=== PATIENT | female | born 1995 | race Caucasian/White ===

== ENCOUNTER 2020-12-26 19:46 | Emergency (ER) | payer BC ==
--- OUTSIDE RECORDS SUMMARY | 2020-12-26 19:49 | XMS REPORT | Continuity of Care Document ---
:1995 Author Organization [facility] t Address [address] [place] [address] Dr. Anderson [address] [place] [address] Care Team Providers Name Role Phone Unavailable Unavailable Unavailable Problems This patient has no known problems. Allergies, Adverse Reactions, Alerts This patient has no known allergies or adverse reactions. Medications This patient has no known medications. Procedures This patient has no known procedures. Encounters Start End Encounter Admission Attending Care Care Encounter Source Date/Time Date/Time Type Type Clinicians Facility Department ID 2020-12-05 2020-12-05 Outpatient [facility] [id number] [facility] 00:00:00 00:00:00 Bryson Campbell ent Clinics Results This patient has no known results.
[2020-12-26 20:34] LABS: Absolute Lymphocytes (CBC) 2.6 K/uL (0.7-4.9); Basophils % 0.4 % (0-1.3); Hematocrit 36.3 % (36.0-45.0); Lymphocytes % 29.1 % (15.3-44.8); MPV 7.8 fL (7.6-11.3); RBC Red Blood Cell Count 4.08 M/uL (3.86-4.86)
[2020-12-26] MEDS ORDERED: NA CHLORIDE 0.9% 1,000 ML ONE (20:35)
[2020-12-26 20:53] LABS: Urine Blood 3+ (NEG); Urine Glucose NEGATIVE (NEG); Urine Protein NEGATIVE (NEG); Urine Specific Gravity 1.015 (1.005-1.030)
[2020-12-26 20:54] LABS: Urine Specific Gravity 1.015 (1.005-1.030)
--- NOTE | 2020-12-26 21:34 | RAD REPORT ---
EXAM DESCRIPTION: US - Transvaginal OB - 12/26/2020 9:08 pm CLINICAL HISTORY: ABD CRAMPING, COMPARISON: No comparisons FINDINGS: The uterus is normal sized. Endometrium is mildly thickened but no IUP is seen. The maternal adnexa and ovaries are within normal limits. Normal Doppler blood flow was demonstrated to both ovaries. No pelvic ascites. IMPRESSION: Mildly thickened endometrium without IUP findings. In the setting of a positive HCG leve l, this would indicate of unknown location. Recommend serial HCG levels and follow-up pelvi c sonogram 7-10 days.
--- NOTE | 2020-12-26 22:09 | ER ---
Nurse's Notes [facility] Name: Claudia Moreno Age: 25 yrs Sex: Female : 1995 Arrival Date: 12/26/2020 Time: 19:53 Bed 8 Private MD: Diagnosis: Threatened ; related conditions, unspecified, first trimester Presentation: 12/26 19:56 Chief complaint: Patient states: Vaginal bleeding began today at 1400 with cramping. 6 ll1 positive test Wednesday. G1, P0. Coronavirus screen: Client denies travel out of the [place] in the last 14 days. At this time, the client does not indicate any symptoms associated with coronavirus-19. Ebola Screen: Patient denies travel to an Ebola-affected area in the 21 days before illness onset. Initial Sepsis Screen: Does the patient meet any 2 criteria? No. Patient's initial sepsis screen is negative. Does the patient have a suspected source of infection? Yes: Other: vag bleed. Risk Assessment: Do you want to hurt yourself or someone else? Patient reports no desire to harm self or others. Onset of symptoms was December 26, 2020. 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 - Social history:: Smoking status: Patient reports the use of cigarette tobacco products, denies chronic smoking, but will smoke occasionally. - Family history:: not pertinent. Screenin:26 Abuse screen: Denies threats or abuse. Denies injuries from another. Nutritional mg2 screening: No deficits noted. Tuberculosis screening: No symptoms or risk factors identified. Fall Risk IV access (20 points). Assessment: 20:24 General: Appears in no apparent distress. comfortable, Behavior is calm, cooperative. mg2 Pain: Complains of pain in abdomen Pain does not radiate. Pain currently is 1 out of 10 on a pain scale. Quality of pain is described as crampy. Neuro: Level of Consciousness is awake, alert, obeys commands, Oriented to person, place, time, situation. Cardiovascular: Capillary refill < 3 seconds Patient's skin is warm and dry. Respiratory: Airway is patent Respiratory effort is even, unlabored, Respiratory pattern is regular, symmetrical. GI: Reports lower abdominal pain, cramping. : Urine is blood tinged, Reports vaginal bleeding that is light flow. EENT: No signs and/or symptoms were reported regarding the EENT system. Derm: Skin is intact, is healthy with good turgor, Skin is pink, warm \T\ dry. normal. Musculoskeletal: Circulation, motion, and sensation intact. Capillary refill < 3 seconds. 21:26 Reassessment: Patient appears in no apparent distress at this time. Patient and/or mg2 family updated on plan of care and expected duration. Pain level reassessed. Patient is alert, oriented x 3, equal unlabored respirations, skin warm/dry/pink. 22:20 Reassessment: Patient appears in no apparent distress at this time. Patient and/or wh family updated on plan of care and expected duration. Pain level reassessed. Patient is alert, oriented x 3, equal unlabored respirations, skin warm/dry/pink. Vital Signs: 19:56 BP 131 / 71; Pulse 89; Resp 16; Temp 98.2; Pulse Ox 100% ; Weight 58.51 kg; Height 5 ll1 ft. 6 in. (167.64 cm); Pain 3/10; 21:26 BP 112 / 62; Pulse 100; Resp 18; Pulse Ox 100% on R/A; mg2 22:20 BP 118 / 71; Pulse 78; Resp 18; Pulse Ox 100% on R/A; wh 19:56 Body Mass Index 20.82 (58.51 kg, 167.64 cm) ll1 ED Course: 19:53 Patient arrived in ED. cf2 19:58 Triage completed. ll1 19:59 Arm band placed on. ll1 20:00 Juan C Hemphill, [place] is Primary Nurse. mg2 20:04 Ajay Reid MD is Attending Physician. gilberto 20:26 Patient has correct armband on for positive identification. mg2 20:26 No provider procedures requiring assistance completed. Inserted saline lock: 20 gauge mg2 in left antecubital area, using aseptic technique. Blood collected. 21:08 Transvaginal Ob In Process Unspecified. EDOR 22:07 Niels Brian MD is Referral Physician. [facility] 22:21 IV discontinued, intact, bleeding controlled, No redness/swelling at site. Administered Medications: 20:24 Drug: NS 0.9% 1000 ml Route: IV; Rate: 1 bolus; Site: left antecubital; mg2 22:11 Follow up: Response: No adverse reaction; IV Status: Completed infusion Point of Care Testing: Urine : 21:00 hCG Reading: Positive; Control Reading: Positive; Outcome: 22:08 Discharge ordered by . [facility] 22:21 Discharged to home ambulatory. 22:21 Condition: stable 22:21 Discharge instructions given to patient, Instructed on discharge instructions, follow up and referral plans. medication usage, POC Demonstrated understanding of instructions, follow-up care, medications, POC Prescriptions given X 1. 22:22 Patient left the ED. Signatures: Dispatcher [employer] EDOR Ajay Reid MD MD cha Habalo, Winsy, RN RN Juan C Hemphill, [place] RN [facility] Karena Rowell 2 Kelly Delcid RN RN ll1
--- NOTE | 2020-12-26 22:09 | EDPHYS ---
Physician Documentation [facility] Name: Claudia Moreno Age: 25 yrs Sex: Female : 1995 Arrival Date: 12/26/2020 Time: 19:53 Bed 8 Private MD: ED Physician Ajay Reid HPI: 12/26 22:05 This 25 yrs old Female presents to ER via Ambulatory with complaints of gilberto Vaginal Bleeding, + Preg <12wks. 22:05 The patient presents to the emergency department with vaginal bleeding. The estimated gilberto gestational age is 3 weeks. course: care: none. Previous pregnancies: the patient has never been . Associated signs and symptoms: The patient has no apparent associated signs or symptoms. The patient has not experienced similar symptoms in the past. 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 - Social history:: Smoking status: Patient reports the use of cigarette tobacco products, denies chronic smoking, but will smoke occasionally. - Family history:: not pertinent. ROS: 22:05 Constitutional: Negative for fever, chills, and weight loss, Eyes: Negative for injury, gilberto pain, redness, and discharge, ENT: Negative for injury, pain, and discharge, Neck: Negative for injury, pain, and swelling, Cardiovascular: Negative for chest pain, palpitations, and edema, Respiratory: Negative for shortness of breath, cough, wheezing, and pleuritic chest pain, Abdomen/GI: Negative for abdominal pain, nausea, vomiting, diarrhea, and constipation, Back: Negative for injury and pain, MS/Extremity: Negative for injury and deformity, Skin: Negative for injury, rash, and discoloration, Neuro: Negative for headache, weakness, numbness, tingling, and seizure, Psych: Negative for depression, anxiety, suicide ideation, homicidal ideation, and hallucinations, Allergy/Immunology: Negative for hives, rash, and allergies, Endocrine: Negative for neck swelling, polydipsia, polyuria, polyphagia, and marked weight changes, Hematologic/Lymphatic: Negative for swollen nodes, abnormal bleeding, and unusual bruising. 22:05 : Positive for vaginal bleeding. Exam: 22:05 Constitutional: This is a well developed, well nourished patient who is awake, alert, gilberto and in no acute distress. Head/Face: Normocephalic, atraumatic. Eyes: Pupils equal round and reactive to light, extra-ocular motions intact. Lids and lashes normal. Conjunctiva and sclera are non-icteric and not injected. Cornea within normal limits. Periorbital areas with no swelling, redness, or edema. ENT: Nares patent. No nasal discharge, no septal abnormalities noted. Tympanic membranes are normal and external auditory canals are clear. Oropharynx with no redness, swelling, or masses, exudates, or evidence of obstruction, uvula midline. Mucous membranes moist. Neck: Trachea midline, no thyromegaly or masses palpated, and no cervical lymphadenopathy. Supple, full range of motion without nuchal rigidity, or vertebral point tenderness. No Meningismus. Chest/axilla: Normal chest wall appearance and motion. Nontender with no deformity. No lesions are appreciated. Cardiovascular: Regular rate and rhythm with a normal S1 and S2. No gallops, murmurs, or rubs. Normal PMI, no JVD. No pulse deficits. Respiratory: Lungs have equal breath sounds bilaterally, clear to auscultation and percussion. No rales, rhonchi or wheezes noted. No increased work of breathing, no retractions or nasal flaring. Abdomen/GI: Soft, non-tender, with normal bowel sounds. No distension or tympany. No guarding or rebound. No evidence of tenderness throughout. Back: No spinal tenderness. No costovertebral tenderness. Full range of motion. Skin: Warm, dry with normal turgor. Normal color with no rashes, no lesions, and no evidence of cellulitis. MS/ Extremity: Pulses equal, no cyanosis. Neurovascular intact. Full, normal range of motion. Neuro: Awake and alert, GCS 15, oriented to person, place, time, and situation. Cranial nerves II-XII grossly intact. Motor strength 5/5 in all extremities. Sensory grossly intact. Cerebellar exam normal. Normal gait. Psych: Awake, alert, with orientation to person, place and time. Behavior, mood, and affect are within normal limits. Vital Signs: 19:56 BP 131 / 71; Pulse 89; Resp 16; Temp 98.2; Pulse Ox 100% ; Weight 58.51 kg; Height 5 ll1 ft. 6 in. (167.64 cm); Pain 3/10; 21:26 BP 112 / 62; Pulse 100; Resp 18; Pulse Ox 100% on R/A; mg2 22:20 BP 118 / 71; Pulse 78; Resp 18; Pulse Ox 100% on R/A; wh 19:56 Body Mass Index 20.82 (58.51 kg, 167.64 cm) ll1 MDM: 20:04 Patient medically screened. gilberto 12/26 20:07 Order name: Quantitative Hcg; Complete Time: 21:49 gilberto 12/26 20:07 Order name: Abo/rh Typing; Complete Time: 22:04 gilberto 12/26 20:07 Order name: Basic Metabolic Panel; Complete Time: 21:49 gilberto 12/26 20:07 Order name: CBC with Diff; Complete Time: 21:49 gilberto 12/26 20:14 Order name: Urine --Ancillary (enter results) tt3 12/26 20:14 Order name: Urine Dipstick--Ancillary (enter results) tt3 12/26 20:01 Order name: Urine Dipstick-Ancillary (obtain specimen); Complete Time: 20:13 mg2 12/26 20:01 Order name: Urine Test (obtain specimen); Complete Time: 20:13 mg2 12/26 20:07 Order name: IV Saline Lock; Complete Time: 20:24 gilberto 12/26 20:07 Order name: US Transvaginal Ob; Complete Time: 21:49 gilberto 12/26 20:14 Order name: Urine --Ancillary; Complete Time: 21:49 EDMS 12/26 20:14 Order name: Urine Dipstick-Ancillary; Complete Time: 21:49 EDMS 12/26 20:21 Order name: Urine --Ancillary (enter results); Complete Time: 21:49 tt3 12/26 20:07 Order name: Labs collected and sent; Complete Time: 20:24 gilberto 12/26 20:07 Order name: NPO; Complete Time: 20:24 gilberto Administered Medications: 20:24 Drug: NS 0.9% 1000 ml Route: IV; Rate: 1 bolus; Site: left antecubital; mg2 22:11 Follow up: Response: No adverse reaction; IV Status: Completed infusion Point of Care Testing: Urine : 21:00 hCG Reading: Positive; Control Reading: Positive; Disposition: 12/26/20 22:08 Discharged to Home. Impression: Threatened , related conditions, unspecified, first trimester. - Condition is Stable. - Discharge Instructions: Threatened Miscarriage, Vaginal Bleeding During , First Trimester, First Trimester of , [id number]-md-Pjdk, First Trimester of , Threatened Miscarriage, [id number]-Pwfl, Pelvic Rest. - Prescriptions for Vitamin 27- 0.8 mg Oral Tablet - take 1 tablet by ORAL route once daily; 30 tablet. - Medication Reconciliation Form, Thank You Letter, Antibiotic Education, Prescription Opioid Use form. - Follow up: Niels Brian MD; When: 2 - 3 days; Reason: Recheck today's complaints, Continuance of care, Re-evaluation by your physician. - Problem is new. - Symptoms have improved. Signatures: Dispatcher [employer] EDMS Ajay Reid MD MD cha Habalo, Winsy, RN RN Juan C Hemphill, [place] RN [facility] Kelly Delcid RN RN ll1 Corrections: (The following items were deleted from the chart) 22:22 22:08 12/26/2020 22:08 Discharged to Home. Impression: Threatened ; wh related conditions, unspecified, first trimester. Condition is Stable. Forms are Medication Reconciliation Form, Thank You Letter, Antibiotic Education, Prescription Opioid Use. Follow up: Niels Brian; When: 2 - 3 days; Reason: Recheck today's complaints, Continuance of care, Re-evaluation by your physician. Problem is new. Symptoms have improved. gilberto
[2020-12-27 00:27] VITALS: BP 118/71; TEMP 98.2; O2SAT 100
== END 2020-12-26 22:22 | disposition home or self-care (01) ==
LOC: ER 19:46
DX: O20.0 Threatened abortion (principal); O99.331 Smoking (tobacco) complicating pregnancy, first trimester; F17.210 Nicotine dependence, cigarettes, uncomplicated
CPT/HCPCS: 96361; 85025; 80048; 36415; 86900; 81025 ×2; 86901; 84702; 81003; 76817; 96360; 99284; J7030

== ENCOUNTER 2021-09-27 18:28 | Emergency (ER) | payer OTHER, SELFPAY ==
--- OUTSIDE RECORDS SUMMARY | 2021-09-27 18:32 | XMS REPORT | Continuity of Care Document ---
:1995 Author Organization [facility] t Address [address] Anderson [address] [place] [address] Care Team Providers Name Role Phone Leodan VALENCIA Attending Clinician Unavailable Doctor Unassigned, Name Attending Clinician Unavailable Leodan Valencia MD Attending Clinician Payers Payer Name Policy Type Policy Number Effective Date Expiration Date S [facility] - [id number] 2020 00:00:00 OUT OF STATE Problems Condition Condition Condition Status Onset Resolution Last Treating Co mments Source Name Details Category Date Date Treatment Clinician Date Anxiety Anxiety Disease Active [facility] Allergies, Adverse Reactions, Alerts Allergy Allergy Status Severity Reaction(s) Onset Inactive Treating Comm ents Source Name Type Date Date Clinician Sulfa Propensi Active Nausea 0 Univers (Sulfona ty to and/or 3-30 ity of mide adverse Vomiting 00:00: [place] Antibiot reaction 00 Medica l ics) s Branch SULFA Drug Active Dizziness 2020-0 Univers (SULFONA Class 3-30 ity of MIDE 00:00: [place] ANTIBIOT 00 Medical ICS) Branch NO KNOWN Drug Active Univers ALLERGIE Class ity of S [facility] Social History Social Habit Start Date Stop Date Quantity Comments Source History of tobacco Cigarette Smoker University of use [facility] Exposure to Not sure [facility] SARS-CoV-2 (event) [facility] Cigarettes smoked 2021-01-21 2021-01-21 Univers ity of current (pack per 00:00:00 00:00:00 [place] ) - Reported Branch Cigarette 2021-01-21 2021-01-21 University of pack-years 00:00:00 00:00:00 [facility] Tobacco use and 2021-01-21 2021-01-21 Never used Universit y of exposure 00:00:00 00:00:00 [facility] Alcohol intake 2021-01-21 2021-01-21 Current drinker Unive rsity of 00:00:00 00:00:00 of alcohol [facility] (finding) [place] Alcohol Comment 2021-01-21 2021-01-21 rarely Universit y of 00:00:00 00:00:00 [facility] Sex Ass[birth year] At [birth year] Universit y of 00:00:00 00:00:00 [facility] Smoking Status Start Date Stop Date Source Current every day smoker 2021-01-21 00:00:00 Uni versity [facility] Medications Ordered Filled Start Stop Current Ordering Indication Dosage Frequency Signature Comments Components Source Medication Medication Date Date Medication? Clinician (SIG) Name Name hydrOXYzine Yes [id number] 25mg Take 1 Univers 25 mg 3-30 capsule by ity of capsule 00:00: mouth [address] [place] [address] [facility]) Medical times [place] daily as needed for Anxiety. hydrOXYzine Yes [id number] 25mg Take 1 Univers 25 mg 3-30 capsule by ity of capsule 00:00: [address] ([facility]) Medical times [place] daily as needed for Anxiety. hydrOXYzine Yes [id number] 25mg Take 1 Univers 25 mg 3-30 capsule by ity of capsule 00:00: mouth [address] [place] [address] [address] [facility]) Medical times [place] daily as needed for Anxiety. hydrOXYzine Yes [id number] 25mg Take 1 Univers 25 mg 3-30 capsule by ity of capsule 00:00: mouth [address] [place] [address] [facility]) Medical times [place] daily as needed for Anxiety. hydrOXYzine Yes [id number] 25mg Take 1 Univers 25 mg 3-30 capsule by ity of capsule 00:00: mouth [address] [place] [address] [facility]) Medical times [place] daily as needed for Anxiety. hydrOXYzine Yes [id number] 25mg Take 1 Univers 25 mg 3-30 capsule by ity of capsule 00:00: mouth [address] [place] [address] (four) Medical times [place] daily as needed for Anxiety. SUMAtriptan Yes 1{tbl} Take 1-2 Univers 50 mg 2-11 tablets by ity of tablet 00:00: mouth as [place] 00 needed for Medical Migraine. Branch SUMAtriptan Yes 1{tbl} Take 1-2 Univers 50 mg 2-11 tablets by ity of tablet 00:00: mouth as [place] 00 needed for Medical Migraine. Branch SUMAtriptan Yes 1{tbl} Take 1-2 Univers 50 mg 2-11 tablets by ity of tablet 00:00: mouth as [place] 00 needed for Medical Migraine. Branch SUMAtriptan Yes 1{tbl} Take 1-2 Univers 50 mg 2-11 tablets by ity of tablet 00:00: mouth as [place] 00 needed for Medical Migraine. Branch SUMAtriptan Yes 1{tbl} Take 1-2 Univers 50 mg 2-11 tablets by ity of tablet 00:00: mouth as [place] 00 needed for Medical Migraine. Branch SUMAtriptan Yes 1{tbl} Take 1-2 Univers 50 mg 2-11 tablets by ity of tablet 00:00: mouth as [place] 00 needed for Medical Migraine. [place] Vital Signs Vital Name Observation Time Observation Value Comments Source Systolic blood 2021-01-21 18:59:00 127 mm[Hg] Univer sity of pressure [facility] Diastolic blood 2021-01-21 18:59:00 81 mm[Hg] [facility] 2021-01-21 18:59:00 77 /min [facility] Body temperature 2021-01-21 18:59:00 36.72 Ivette [facility] Respiratory rate 2021-01-21 18:59:00 18 /min [facility] Body height 2021-01-21 18:59:00 166.4 cm [facility] Body weight 2021-01-21 18:59:00 58.786 kg [facility] BMI 2021-01-21 18:59:00 21.24 kg/m2 [facility] Procedures Procedure Date / Time Performed Performing Clinician Sourc e EXTERNAL PROVIDER 2021-02-07 05:01:00 Doctor Unassigned, No Univ ersity [facility] SCANNED LAB RESULTS 2021-01-21 05:01:00 [facility] 2021-01-21 00:00:00 Gabriel Valencia ty [facility] Encounters Start End Encounter Admission Attending Care Care Encounter Source Date/Time Date/Time Type Type Clinicians Facility Department ID 2022-01-21 2022-01-21 Outpatient R ERIK, [facility] [id number] Univers 09:00:00 09:00:00 GABRIEL [id number] ity [facility] 2022-01-21 2022-01-21 Outpatient R ERIK, [facility] [id number] Univers 09:00:00 09:00:00 [facility] 2021-02-07 2021-02-07 Orders Doctor CLINT [id number] Univers 00:00:00 00:00:00 Only Unassigned, PETE [id number] ity [facility] [id number] Ian as [phone] [address] 2021-02-03 2021-02-03 Outpatient [facility] [id number] 2021-02-03 2021-02-03 Outpatient [facility] [id number] [facility] 2021-01-28 2021-01-28 Case Ad, [facility] [id number] Univers 00:00:00 00:00:00 Management Gabriel Gonzales [id number] ity [facility] [id number] [phone] [address] 2021-01-21 2021-01-21 Office Ad, [facility] [id number] Univers 13:04:09 15:16:56 Visit Gabriel Gonzales [id number] ity [id number] [phone] Vt dical [address] 2021-01-21 2021-01-21 Outpatient Daniel VALENCIA, [facility] [id number] Univers 13:30:00 13:30:00 GABRIEL ity [facility] 2021-01-21 2021-01-21 Orders Doctor CLINT [id number] Univers 00:00:00 00:00:00 Only Unassigned, PETE [id number] ity of [place] [facility] [id number] Ian as [phone] [address] 2020-12-26 2020-12-26 Outpatient [facility] [id number] [facility]00 [facility] 2020-12-05 2020-12-05 Outpatient [facility] [id number] [facility]00 [facility] Results Test Description Test Time Test Comments Results Result Comments Source POCT TEST 2021-01-21 19:40:00 Test Item Value Reference Range Interpretation Comme nts POCT PREG (test code = 1605) Negative On board controls acceptable with C Line (test code = 3574) Yes POCT PREG LOT # (test code = 3575) POCT PREG TEST DATE (test code = 3576) Lab Interpretation (test code = 73337-9) [id number] 19:40:00 Test Item Value Reference Range Interpretation Comments POCT PREG (test code = 1605) Negative On board controls acceptable with C Yes Line (test code = 3574) POCT PREG LOT # (test code = 3575) POCT PREG TEST DATE (test code = 3576) Lab Interpretation (test code = Normal 81471-4) [id number] 19:40:00 Test Item Value Reference Range Interpretation Comments POCT PREG (test code = 1605) Negative On board controls acceptable with C Yes Line (test code = 3574) POCT PREG LOT # (test code = 3575) POCT PREG TEST DATE (test code = 3576) Lab Interpretation (test code = Normal 17996-4) [facility]
[2021-09-27 20:04] LABS: Urine Bilirubin NEGATIVE (Negative); Urine Blood 3+ (Negative); Urine Glucose NEGATIVE (Negative); Urine Protein 2+ (Negative)
[2021-09-27 20:07] LABS: Urine Appearance TURBID (Clear); Urine Color RED (Yellow)
[2021-09-27 20:07] LABS: Absolute Lymphocytes (CBC) 2.1 K/uL (0.7-4.9); Basophils % 0.5 % (0-1.3); Hematocrit 38.4 % (36.0-45.0); Lymphocytes % 31.5 % (15.3-44.8); RBC Red Blood Cell Count 4.35 M/uL (3.86-4.86)
[2021-09-27 20:09] LABS: Urine Bacteria 20-50 /HPF (<20); Urine RBC TNTC /HPF (NONE SEEN)
[2021-09-27 20:16] LABS: BUN Blood Urea Nitrogen 6 mg/dL (7-18); Bicarbonate 26 mmol/L (21-32); Glucose Level 92 mg/dL (74-106); Potassium 4.1 mmol/L (3.5-5.1); Sodium Level 140 mmol/L (136-145)
[2021-09-27 20:34] LABS: HCG, Quantitative 2017 mIU/mL (1-3)
[2021-09-27] MEDS ORDERED: CEFTRIAXONE 1000 MG/VIAL ONE ×2 (20:43→21:08)
[2021-09-27] MEDS ORDERED: WATER FOR INJ,STERILE 10 ML ONE (20:43)
[2021-09-27] MEDS ORDERED: NA CHLORIDE 0.9% 50 ML ONE (21:08)
--- NOTE | 2021-09-28 00:23 | ER ---
Nurse's Notes [facility] Name: Claudia Moreno Age: 26 yrs Sex: Female : 1995 Arrival Date: 09/27/2021 Time: 18:31 Bed 9 Private MD: Diagnosis: Threatened ;UTI/ Urinary tract infection, site not specified Presentation: 09/27 18:43 Chief complaint: Patient states: Pt is approximately 6 weeks . States brownish vg1 d/c began on 09/25/21. Saw Dr Brian yesterday and was placed on pelvic rest and was told if bleeding continues to come to ED. Pt states today about 30 minutes ago had bright red blood. States NV and lower ABD cramping. Coronavirus screen: Vaccine status: Patient reports receiving the 2nd dose of the covid vaccine. Client denies travel out of the [place] in the last 14 days. Ebola Screen: Patient negative for fever greater than or equal to 101.5 degrees Fahrenheit, and additional compatible Ebola Virus Disease symptoms. Initial Sepsis Screen: Does the patient meet any 2 criteria? No. Patient's initial sepsis screen is negative. Does the patient have a suspected source of infection? No. Patient's initial sepsis screen is negative. Risk Assessment: Do you want to hurt yourself or someone else? Patient reports no desire to harm self or others. Onset of symptoms was September 25, 2021. 18:43 Method Of Arrival: Ambulatory vg1 18:43 Acuity: JAI 3 vg1 Triage Assessment: 18:45 General: Appears in no apparent distress. uncomfortable, Behavior is cooperative, vg1 crying. Pain: Complains of pain in pelvis. GI: Reports nausea, vomiting. : Reports vaginal bleeding that is bright red. TRANSPORTATION JOB TITLES: 18:45 LMP 08/13/2021 vg1 20:39 2, Full Term 0, 1, Living 0 pm1 Historical: - Allergies: 18:45 Sulfa (Sulfonamide Antibiotics); vg1 - Home Meds: 18:45 None [Active]; vg1 - PMHx: 18:45 None; vg1 - PSHx: 18:45 Shoulder-Right; vg1 - Immunization history:: Client reports receiving the 2nd dose of the Covid vaccine, Flu vaccine is up to date. - Social history:: Smoking status: Patient denies any tobacco usage or history of. Screenin:35 Abuse screen: Denies threats or abuse. Denies injuries from another. Nutritional ld1 screening: No deficits noted. Tuberculosis screening: No symptoms or risk factors identified. Fall Risk None identified. Assessment: 20:40 General: Appears in no apparent distress. Behavior is appropriate for age. Pain: Denies lp1 pain. Neuro: Level of Consciousness is awake, alert, obeys commands, Oriented to person, place, time, situation. Cardiovascular: Patient's skin is warm and dry. Respiratory: Respiratory effort is even, unlabored. GI: Abdomen is non-distended. : Urine is blood tinged, Reports vaginal bleeding that is bright red. EENT: No signs and/or symptoms were reported regarding the EENT system. Derm: Skin is pink, warm \T\ dry. Musculoskeletal: No deficits noted. 21:30 Reassessment: Patient reports episode of heavy vaginal bleeding; Provider at bedside to lp1 reassess. 09/28 00:30 Reassessment: Patient appears in no apparent distress at this time. Patient is alert, lp1 oriented x 3, equal unlabored respirations, skin warm/dry/pink. Patient states feeling better. Vital Signs: 09/27 18:43 BP 117 / 63; Pulse 99; Resp 16; Temp 98.4; Pulse Ox 99% ; Weight 59.87 kg; Height 5 ft. vg1 6 in. (167.64 cm); Pain 4/10; 21:35 BP 111 / 72; Pulse 83; Resp 16; Pulse Ox 100% on R/A; ld1 09/28 00:39 BP 120 / 66; Pulse 84; Resp 16; Pulse Ox 100% on R/A; lp1 09/27 18:43 Body Mass Index 21.31 (59.87 kg, 167.64 cm) vg1 ED Course: 09/27 18:31 Patient arrived in ED. ds1 18:45 Triage completed. vg1 18:45 Arm band placed on. vg1 19:41 Urine collected: clean catch specimen, blood tinged, Sent to lab for UA and lp1 test, lab notified. 19:49 Initial lab(s) drawn, by ut, sent to lab. Inserted saline lock: 22 gauge in right vg1 antecubital area, using aseptic technique. Blood collected. 20:23 Kirk Small NP is PHCP. pm1 20:23 Jameel Jaime MD is Attending Physician. pm1 20:34 Tory Montoya, RN is Primary Nurse. lp1 21:35 Patient has correct armband on for positive identification. Placed in gown. ld1 22:21 US Transvaginal Ob In Process Unspecified. EDMS 09/28 00:39 No provider procedures requiring assistance completed. IV discontinued, No lp1 redness/swelling at site. Pressure dressing applied. Administered Medications: 09/27 21:30 Drug: Rocephin (cefTRIAXone) 1 grams Route: IV; Rate: calculated rate; Site: right ld1 antecubital; 22:00 Follow up: IV Status: Completed infusion; IV Intake: 50ml lp1 Intake: 22:00 IV: 50ml; Total: 50ml. lp1 Outcome: 09/28 00:22 Discharge ordered by MD. pm1 00:39 Discharged to home ambulatory, with significant other. lp1 00:39 Condition: good 00:39 Discharge instructions given to patient, significant other, Instructed on discharge instructions, follow up and referral plans. medication usage, Demonstrated understanding of instructions, follow-up care, medications, Prescriptions given X 1. 00:40 Patient left the ED. lp1 Signatures: Dispatcher [employer] [facility] Fowler Fariba ds Tory Montoya, RN RN lp1 Kirk Small, JAYJAY HANDBOOK WRITER pm1 Vanessa Mays RN RN vg1 Soni Campbell RN RN ld1
--- NOTE | 2021-09-28 00:23 | EDPHYS ---
Physician Documentation [facility] Name: Claudia Moreno Age: 26 yrs Sex: Female : 1995 Arrival Date: 09/27/2021 Time: 18:31 Bed 9 Private MD: ED Physician Jameel Jaime HPI: 09/27 20:39 This 26 yrs old Female presents to ER via Ambulatory with complaints of Vaginal pm1 Bleeding - 6 WKS. 20:39 The patient presents with vaginal bleeding that is light. Onset: The symptoms/episode pm1 began/occurred yesterday. Modifying factors: The symptoms are alleviated by nothing, the symptoms are aggravated by nothing. Associated signs and symptoms: The patient has no apparent associated signs or symptoms, Pertinent negatives: dysuria, fever, abdominal pain. Severity of symptoms: in the emergency department the symptoms are unchanged. The patient is sexually active, reportedly has a single partner. The patient's method of control includes nothing. The patient has experienced a previous episode, miscarriage a few months ago at 6 weeks gestation. NUTRITIONALIST: 18:45 LMP 08/13/2021 vg1 20:39 2, Full Term 0, 1, Living 0 pm1 Historical: - Allergies: 18:45 Sulfa (Sulfonamide Antibiotics); vg1 - Home Meds: 18:45 None [Active]; vg1 - PMHx: 18:45 None; vg1 - PSHx: 18:45 Shoulder-Right; vg1 - Immunization history:: Client reports receiving the 2nd dose of the Covid vaccine, Flu vaccine is up to date. - Social history:: Smoking status: Patient denies any tobacco usage or history of. ROS: 20:39 Positive for vaginal bleeding, Negative for urinary symptoms, pelvic pain, flank pm1 pain. 20:39 Constitutional: Negative for fever, chills, and weight loss, Cardiovascular: Negative for chest pain, palpitations, and edema, Respiratory: Negative for shortness of breath, cough, wheezing, and pleuritic chest pain, Abdomen/GI: Negative for abdominal pain, nausea, vomiting, diarrhea, and constipation, Back: Negative for injury and pain, MS/Extremity: Negative for injury and deformity, Skin: Negative for injury, rash, and discoloration. 20:39 Neuro: Negative for headache, weakness, numbness, tingling, and seizure. 20:39 All other systems are negative. Exam: 20:39 Constitutional: This is a well developed, well nourished patient who is awake, alert, pm1 and in no acute distress. Head/Face: Normocephalic, atraumatic. 20:39 Back: No spinal tenderness. No costovertebral tenderness. Full range of motion. Skin: Warm, dry with normal turgor. Normal color with no rashes, no lesions, and no evidence of cellulitis. MS/ Extremity: Pulses equal, no cyanosis. Neurovascular intact. Full, normal range of motion. 20:39 Eyes: Exam is negative for acute changes, Extraocular movements: no acute changes, Conjunctiva: no acute changes, no injection, Sclera: no acute changes, icterus, is not appreciated. 20:39 ENT: Exam is negative for acute changes, Mouth: no acute changes, Lips: normal, moist, Oral mucosa: normal, pink and intact, moist. 20:39 Cardiovascular: Exam negative for acute changes, Rate: normal, Rhythm: regular, Pulses: no pulse deficits are appreciated, Edema: is not appreciated. 20:39 Respiratory: Exam negative for acute changes, respiratory distress, shortness of breath. 20:39 Abdomen/GI: Exam negative for acute changes, Palpation: abdomen is soft and non-tender, in all quadrants. 20:39 Neuro: Exam negative for acute changes, Orientation: is normal, Motor: is normal, moves all fours, Sensation: is normal, no obvious gross deficits. Vital Signs: 18:43 BP 117 / 63; Pulse 99; Resp 16; Temp 98.4; Pulse Ox 99% ; Weight 59.87 kg; Height 5 ft. vg1 6 in. (167.64 cm); Pain 4/10; 21:35 BP 111 / 72; Pulse 83; Resp 16; Pulse Ox 100% on R/A; ld1 12 00:39 BP 120 / 66; Pulse 84; Resp 16; Pulse Ox 100% on R/A; lp1 09/27 18:43 Body Mass Index 21.31 (59.87 kg, 167.64 cm) vg1 MDM: 09/27 20:23 Patient medically screened. pm1 22:40 ED course: quality tech reports 5 week gestational sack present on U/S. pm1 23:07 Data reviewed: vital signs. Data interpreted: Pulse oximetry: on room air is 100 %. pm1 Interpretation: normal. 09/28 00:21 Counseling: I had a detailed discussion with the patient and/or guardian regarding: the pm1 historical points, exam findings, and any diagnostic results supporting the discharge/admit diagnosis, lab results, radiology results, the need for outpatient follow up, an OB/Gyne specialist, has a lab draw ordered from Dr. Brian for repeat beta hcg Wednesday. 09/27 19:37 Order name: Abo/rh Typing; Complete Time: 21:47 pm1 09/27 19:37 Order name: Basic Metabolic Panel; Complete Time: 21:47 pm1 09/27 19:37 Order name: CBC with Diff; Complete Time: 21:47 pm1 09/27 19:37 Order name: Quantitative Hcg; Complete Time: 21:47 pm1 09/27 19:41 Order name: Urinalysis lp1 09/27 19:24 Order name: Urine Dipstick-Ancillary (obtain specimen); Complete Time: 20:34 lp1 09/27 19:24 Order name: Urine Test (obtain specimen); Complete Time: 20:34 lp1 09/27 19:37 Order name: IV Saline Lock; Complete Time: 19:49 pm1 09/27 19:46 Order name: Urinalysis W/Microscopic; Complete Time: 20:23 EDMS 09/27 20:10 Order name: Urine Culture EDIN 09/27 21:22 Order name: US Transvaginal Ob pm1 09/27 19:37 Order name: Labs collected and sent; Complete Time: 19:49 pm1 09/27 19:37 Order name: NPO; Complete Time: 19:43 pm1 Administered Medications: 09/27 21:30 Drug: Rocephin (cefTRIAXone) 1 grams Route: IV; Rate: calculated rate; Site: right ld1 antecubital; 22:00 Follow up: IV Status: Completed infusion; IV Intake: 50ml lp1 Disposition: 09/28 05:18 Co-signature as Attending Physician, Jameel Jaime MD. [email or web address] Disposition Summary: 09/28/21 00:22 Discharge Ordered Location: Home pm1 Problem: new pm1 Symptoms: have improved pm1 Condition: Stable pm1 Diagnosis - Threatened pm1 - UTI/ Urinary tract infection, site not specified pm1 Followup: pm1 - With: Emergency Department - When: As needed - Reason: Worsening of condition Followup: pm1 - With: Private Physician - When: 2 - 3 days - Reason: Recheck today's complaints, Continuance of care, Repeat Beta-HCG (48 Hours), Re-evaluation by your physician Discharge Instructions: - Discharge Summary Sheet pm1 - Threatened Miscarriage pm1 - and Urinary Tract Infection pm1 Forms: - Medication Reconciliation Form pm1 - Thank You Letter pm1 - Antibiotic Education pm1 - Prescription Opioid Use pm1 Prescriptions: - Macrobid 100 mg Oral Capsule - take 1 capsule by ORAL route every 12 hours for 10 days; 20 capsule; Refills: pm1 0, Product Selection Permitted Signatures: Dispatcher [employer] EDMS Tory Montoya, [place] RN lp1 Kirk Small NP [employer]ARDS SOLDER LEVELER pm1 Vanessa Mays RN RN vg1 Jameel Jaime MD MD [email or web address] Soni Campbell RN RN ld1 Corrections: (The following items were deleted from the chart) 09/27 19:45 19:37 UA MICROSCOPIC+U.LAB.BRZ ordered. EDMS EDMS 19:46 19:41 Urinalysis ordered. EDMS EDMS
[2021-09-28 01:01] VITALS: TEMP 98.4
[2021-09-28 01:02] VITALS: O2SAT 100
[2021-09-28 01:04] VITALS: BP 120/66
--- NOTE | 2021-09-28 13:59 | RAD REPORT ---
EXAM DESCRIPTION: US - Transvaginal OB - 09/27/2021 10:21 pm CLINICAL HISTORY: VAGINAL BLEEDING. Last menstrual period 08/13/2021. Estimated gestational age by L MP is 6 weeks and 3 days. COMPARISON: None. TECHNIQUE: Real-time grayscale and color Doppler images of the pelvis were obtained utilizing transa bdominal and transvaginal technique. FINDINGS: Uterus: 3.2 x 4.1 x 8.1 cm. There is a gestational sac with double decidual sign in the en dometrial cavity, with a mean sac diameter of 0.49 cm, corresponding to an estimated gestational age of 5 weeks and 1 day. No pole or yolk sac are visualized. Right ovary: 3.5 x 4.4 x 1.3 cm (volume 10.7 mL). Normal arterial flow. No concerning lesions. Left ovary: 3 x 1.8 x 2.9 cm (volume 8.5 mL). Normal arterial flow. No concerning lesions. Cul-de-sac: No free fluid identified. Unremarkable appearance of the urinary bladder. IMPRESSION: 1. Intrauterine gestational sac measuring 5 weeks and 1 day by ultrasound (TRACEY 2). 2. No pole or yolk sac are visualized at this time. Electronically signed by: Luiza Masterson MD 09/28/2021 12:14 AM DUMPING MACHINE OPERATOR Due to temporary technical issues with the PACS/Fluency reporting system, reports are being signed by the in house radiologists without review as a courtesy to insure prompt reporting. The interpreting radiologist is fully responsible for the content of the report.
== END 2021-09-28 00:40 | disposition home or self-care (01) ==
LOC: ER 18:28
DX: O20.0 Threatened abortion (principal); O23.41 Unspecified infection of urinary tract in pregnancy, first trimester; N39.0 Urinary tract infection, site not specified; Z3A.01 Less than 8 weeks gestation of pregnancy; Z88.2 Allergy status to sulfonamides
CPT/HCPCS: 36415; 76817; 80048; 81001; 84702; 85025; 86900; 86901; 87086; 87088; 96365; 99284